=== PATIENT | male | born 1975 | race Caucasian/White ===

== ENCOUNTER 2022-05-26 13:30 | Emergency (ER) | payer BC ==
[2022-05-26] MEDS ORDERED: Sodium Chloride 0.9% 10 ML Syringe FLUSH PRN (13:37)
[2022-05-26] MEDS: Lactated Ringers 1,000 ML IV SCH (13:44)
[2022-05-26] MEDS: Morphine 4 MG/ML VIAL IVPUSH STA ×2 (13:46→16:59)
[2022-05-26] MEDS: Ketorolac 30 MG/ML SDV IVPUSH ONE (13:47)
[2022-05-26] MEDS: Ondansetron 4 MG/2 ML SDV IVPUSH STA ×2 (13:47→18:02)
[2022-05-26 14:05] LABS: ESTIMATED GFR 83 mL/min (>60)
[2022-05-26] MEDS: Iopamidol 755 Mg/ML 100 ML Bottle IV ONE (14:56)
[2022-05-26] MEDS: Morphine 4 MG/ML VIAL ONE (17:00)
[2022-05-26] MEDS: cefOXitin 2 GM Vial IVPUSH STA (17:00)
== END 2022-05-26 16:51 ==
LOC: FB.ED 13:30
DX: K35.80 Unspecified acute appendicitis (principal); Z20.822 Contact with and (suspected) exposure to COVID-19
CPT/HCPCS: 36415; 74177; 80053; 81001; 82150; 83690; 85025; 96361; 96374; 96375; 96376; 99284; 99285-25; J0694; J1885; J2270; J2405; J7120; Q9967; U0002